=== PATIENT | female | born 1975 | race Caucasian/White ===

== ENCOUNTER 2023-10-04 21:49 | Outpatient (REF) | payer BC, SELFPAY ==
[2023-10-04 22:27] LABS: ALT 31 U/L (14-59); AST 20 U/L (15-37); Alkaline Phosphatase 66 U/L (46-116); Anion Gap 8.9 mmol/L (3-11); BUN 18 mg/dL (7-18); Bilirubin, Total 0.3 mg/dL (0.2-1.0); CO2 28.1 mmol/L (21.0-32.0); CREATININE 0.9 mg/dL (0.55-1.02); Calcium 9.3 mg/dL (8.5-10.1); Chloride 103 mmol/L (98-107); Estimated GFR 78.37 (mL/min/1.73m2); Glucose 106 mg/dL (74-106); Potassium 3.9 mmol/L (3.5-5.1); Sodium 140 mmol/L (136-145); Total Protein 7.2 g/dL (6.4-8.2)
[2023-10-05 11:17] LABS: Hemoglobin A1C 5.7 % (<5.7)
== END 2023-10-04 21:50 | disposition home or self-care (01) ==
LOC: NCHCN 21:49
PROVIDERS: Visit Provider Nurse Practitioner Family
DX: R73.03 Prediabetes (principal)
CPT/HCPCS: 80053; 83036

== ENCOUNTER 2024-04-03 09:28 | Outpatient (REF) | payer BC, SELFPAY ==
[2024-04-03 20:11] LABS: ALT 29 U/L (14-59); AST 20 U/L (15-37); Albumin 3.9 g/dL (3.4-5.0); Alkaline Phosphatase 66 U/L (46-116); Anion Gap 5.6 mmol/L (3-11); BUN 17 mg/dL (7-18); Bilirubin, Total 0.35 mg/dL (0.2-1.0); CO2 30.4 mmol/L (21.0-32.0); CREATININE 0.9 mg/dL (0.55-1.02); Calcium 9.7 mg/dL (8.5-10.1); Calculated LDL 130 mg/dL (<100); Chloride 105 mmol/L (98-107); Cholesterol 212 mg/dL (<200); Estimated GFR 78.37 (mL/min/1.73m2); Glucose 114 mg/dL (74-106); HDL Cholesterol 59 mg/dL (40-60); Potassium 4.6 mmol/L (3.5-5.1); Sodium 141 mmol/L (136-145); Total Protein 7.5 g/dL (6.4-8.2); Triglyceride 116 mg/dL (<150); Vitamin D 25 Total 71.8 ng/mL (30-100)
== END 2024-04-03 09:29 | disposition home or self-care (01) ==
LOC: NCHCN 09:28
PROVIDERS: PCP Nurse Practitioner Family; Visit Provider Nurse Practitioner Family
DX: E55.9 Vitamin D deficiency, unspecified (principal); E66.9 Obesity, unspecified
CPT/HCPCS: 80053; 80061; 82306

== ENCOUNTER 2024-09-19 16:21 | Outpatient (REF) | payer BC, SELFPAY ==
[2024-09-19 19:24] LABS: HCT 42.9 % (36.0-46.0); HGB 14.6 g/dL (11.2-15.7); MCH 30.2 pg (27.0-33.0); MCV 89 fL (80-95); MPV 10.1 fL (8.0-11.0); Platelet Count 240 10^3/uL (130-400); RBC 4.84 10^6/uL (3.93-5.22); RDW 12.7 % (11.7-14.6); RDW-SD 41.3 fL; WBC 6.06 10^3/uL (4.4-10.8)
[2024-09-19 19:42] LABS: ALT 50 U/L (14-59); AST 32 U/L (15-37); Albumin 4.2 g/dL (3.4-5.0); Alkaline Phosphatase 71 U/L (46-116); Anion Gap 6.9 mmol/L (3-11); BUN 21 mg/dL (7-18); Bilirubin, Total 0.35 mg/dL (0.2-1.0); CO2 29.1 mmol/L (21.0-32.0); CREATININE 0.8 mg/dL (0.55-1.02); Calcium 9.4 mg/dL (8.5-10.1); Calculated LDL 133 mg/dL (<100); Chloride 105 mmol/L (98-107); Cholesterol 226 mg/dL (<200); Estimated GFR 89.71 (mL/min/1.73m2); Glucose 126 mg/dL (74-106); HDL Cholesterol 66 mg/dL (40-60); Potassium 4.3 mmol/L (3.5-5.1); Sodium 141 mmol/L (136-145); Total Protein 7.3 g/dL (6.4-8.2); Triglyceride 136 mg/dL (<150)
== END 2024-09-19 16:22 | disposition home or self-care (01) ==
LOC: NCHCN 16:21
PROVIDERS: PCP Nurse Practitioner Family; Visit Provider Nurse Practitioner Family
DX: E11.9 Type 2 diabetes mellitus without complications (principal); Z13.220 Encounter for screening for lipoid disorders
CPT/HCPCS: 80053; 80061; 85027; 84443